=== PATIENT | female | born 1980 | race Caucasian/White ===

== ENCOUNTER 2017-01-17 09:50 | Emergency (ER) | payer MEDICARE, MEDICAID ==
--- NOTE | 2017-01-17 11:26 | UC ---
Momo Horvath Thomas, scribed for Laila Joshi MD on 01/17/17 at 1118 . Upper Extremity HPI - HPI Summary HPI Summary: The pt is a 36 y/o F presenting to Urgent Care c/o right shoulder pain that began a week ago but worsened two days ago. The pain is described as dull and stabbing. The pain is rated 7/10. The pain is aggravated by elevation of her right arm, palpation, and movement. It is alleviated by nothing. The patient has treated the pain with Naproxen [employer]. Pt additionally c/o numbness to her right arm yesterday when she was leaning on her right elbow. none since. No h/o injury - but states she does bowl and this increased pain. She is right- handed. Patients medication reviewed this visit. - History of Current Complaint Chief Complaint: UCUpperExtremity Stated Complaint: SHOULDER PAIN Time Seen by Provider: 01/17/17 11:11 Hx Obtained From: Patient Hx Last Menstrual Period: 2004 Onset/Duration: Lasting Weeks - 1, Still Present, Worse Since - two days Severity Initially: Mild Severity Currently: Moderate Pain Intensity: 7 Pain Scale Used: 0-10 Numeric Location Of Pain: Is Discrete @ - right shoulder Character: Dull Aggravating Factor(s): Movement, Other - Elevation, palpation Alleviating Factor(s): Nothing Associated Signs And Symptoms: Positive: Other - Numbness to right arm Related History: Dominant Hand Right - Allergies/Home Medications Allergies/Adverse Reactions: Allergies Allergy/AdvReac Type Severity Reaction Status Date / Time Acetaminophen [From Tylenol] Allergy See Comment Verified 01/17/17 09:56 Penicillins Allergy Hives Verified 01/17/17 09:56 Home Medications: Home Medications Naproxen Sodium [Naproxen Sodium 220 mg] 440 mg PO 01/17/17 [History] PMH/Surg Hx/FS Hx/Imm Hx Previously Healthy: Yes - NEGATIVE: DM, CAD - Surgical History Surgical History: Yes Surgery Procedure, Year, and Place: hysterectomy 2004 - Family History Known Family History: Positive: Cardiac Disease, Hypertension, Diabetes - Social History Occupation: Unemployed Lives: With Family Alcohol Use: Weekly Substance Use Type: None Smoking Status (MU): Heavy Every Day Tobacco Smoker Type: Cigarettes Amount Used/How Often: 1/2 PPD Have You Smoked in the Last Year: Yes Review of Systems Constitutional: Negative Skin: Negative Motor: Other - right shoulder pain Musculoskeletal: Other: - Right shoulder pain Neurological: Numbness - to right hand yesterday - resolved Is Patient Immunocompromised?: No All Other Systems Reviewed And Are Negative: Yes Physical Exam Triage Information Reviewed: Yes Appearance: Well-Appearing, No Pain Distress, Well-Nourished Vital Signs: Initial Vital Signs Temp 98.4 F 01/17/17 09:52 Pulse 81 01/17/17 09:52 Resp 18 01/17/17 09:52 BP 131/73 01/17/17 09:52 Pulse Ox 100 01/17/17 09:52 Vital Signs Reviewed: Yes Eyes: Negative: Discharge ENT: Positive: Hearing grossly normal Neck exam: Normal Neck: Positive: Supple, Nontender Respiratory Exam: Normal Respiratory: Positive: Chest non-tender, Lungs clear, Normal breath sounds, No respiratory distress, No accessory muscle use Cardiovascular Exam: Normal Cardiovascular: Positive: RRR, No Murmur, Pulses Normal - 2+ radial, 2+ ulnar Musculoskeletal: Positive: Other: - + TTP anterior rim of right shoulder + pain with extension shoulder > 90 and abduction right shoulder >90 + flex/ext elbow + pronate/supinate with mild right anterior shoulder pain No pain c/t/l/s Neurological Exam: Normal Neurological: Positive: Alert, Other: - + thumb up, a ok, finger spread, finger cross + gross sensation throughout Diagnostics - Radiology Shoulder XR Xray Interpretation: No Acute Changes - No evidence for fracture. Urgent Care physician has reviewed this report and agrees. Radiology Interpretation Completed By: Radiologist Re-Evaluation - Re-Evaluation First Eval Comment: reviewed imaging with pt. will place in sling - demonstrated shoulder and elbow exercises. ortho referral. naproxyn with food. ice. rest Upper Extremity Course/Dx - Course Course Of Treatment: The patient is a 36 year old female with right shoulder pain that is worssened with elevation of her right arm. Pain over rotator cuff. will check imaging for ?spur. likely sling, ortho f/u. continue naproxyn with food. Pt can not take APAP - Differential Dx/Diagnosis Provider Diagnoses: right shoulder pain Discharge - Discharge Plan Condition: Stable Disposition: HOME Patient Education Materials: Shoulder Pain (ED) Forms: *Work Release Referrals: Danny Jewell MD [Medical Doctor] - Jessi Zuñiga MD [Primary Care Provider] - Additional Instructions: - Wear sling for comfort. Take your arm out sling and slowly bend/straighten your elbow and make small circles at your shoulder as demonstrated in the ED - Okay to take Naproxyn - it is recommended you take this with food. - Apply ice (Wrapped in a towel) 20 minutes at a time 2-3 times a day - Contact the orthopedic provider to arrange a follow-up appointment. The documentation as recorded by the Momo zuñiga Thomas accurately reflects the service I personally performed and the decisions made by , Laila Joshi MD.
--- NOTE | 2017-01-17 11:46 | RAD ---
INDICATION: Right shoulder pain. TECHNIQUE: 4 views of the right shoulder were obtained. FINDINGS: The bones are in normal alignment. No fracture is seen. There is a tiny calcific density adjacent to the posterior aspect of the glenoid process of the scapula. No other calcifications are seen. Joint spaces appear maintained. IMPRESSION: NO EVIDENCE OF FRACTURE.
[2017-01-17 11:51] VITALS: BP 108/79
== END 2017-01-17 11:55 | disposition home or self-care (01) ==
LOC: UCEAST 09:50
DX: M25.511 Pain in right shoulder (principal); F17.210 Nicotine dependence, cigarettes, uncomplicated; Z88.0 Allergy status to penicillin; Z88.6 Allergy status to analgesic agent
CPT/HCPCS: 99211; G0463

== ENCOUNTER 2018-01-08 10:16 | Emergency (ER) | payer MEDICARE, MEDICAID ==
[2018-01-08 10:26] VITALS: BP 126/80
--- NOTE | 2018-01-08 10:39 | UC ---
Throat Pain/Nasal Sid HPI - HPI Summary HPI Summary: 37 yo female presents with sinus pain/pressure/congestion for the last 2 weeks. Over the last 3 days has been green nasal drainage and worsening post nasal drip. Sinus headache since yesterday. Has been taking dayquill with no relief. Denies fever, chills, SOB, chest pain. - History of Current Complaint Chief Complaint: UCRespiratory Stated Complaint: CONGESTED,FEVER Time Seen by Provider: 01/08/18 10:39 Hx Obtained From: Patient Hx Last Menstrual Period: 2004 Onset/Duration: Gradual Onset Severity: Moderate Pain Intensity: 7 Pain Scale Used: 0-10 Numeric - Allergies/Home Medications Allergies/Adverse Reactions: Allergies Allergy/AdvReac Type Severity Reaction Status Date / Time acetaminophen Allergy See Comment Verified 01/08/18 10:28 Penicillins Allergy Hives Verified 01/08/18 10:28 Home Medications: Home Medications Dm/Acetaminophen/Doxylamine [Vicks Nyquil Cold & Flu N 15-6.25-325 mg] 2 cap PO 01/08/18 [History] PMH/Surg Hx/FS Hx/Imm Hx - Additional Past Medical History Additional PMH: None - Surgical History Surgical History: Yes Surgery Procedure, Year, and Place: hysterectomy 2004 - Family History Known Family History: Positive: Cardiac Disease, Hypertension, Diabetes - Social History Occupation: Employed Full-time Lives: With Family Alcohol Use: Weekly Substance Use Type: None Smoking Status (MU): Light Every Day Tobacco Smoker Type: Cigarettes Amount Used/How Often: 1/2 PPD Have You Smoked in the Last Year: Yes Review of Systems Constitutional: Negative Skin: Negative Eyes: Negative ENT: Nasal Discharge, Sinus Congestion, Sinus Pain/Tenderness Respiratory: Negative Cardiovascular: Negative Gastrointestinal: Negative Neurovascular: Negative Neurological: Negative Psychological: Negative All Other Systems Reviewed And Are Negative: Yes Physical Exam - Summary Physical Exam Summary: GENERAL: NAD. WDWN. No pain distress. SKIN: No rashes, sores, lesions, or open wounds. HEENT: Head: AT/NC Eyes: EOM intact. Conjunctiva clear without inflammation or discharge. Ears: Hearing grossly normal. TMs intact, no bulging, erythema, or edema. Nose: Nasal mucosa mildly swollen and erythematous with green/ yellow discharge. TTP maxillary and frontal sinus. Positive post nasal drip Throat: Posterior oropharynx without exudates, erythema, or tonsillar enlargement. Uvula midline. NECK: Supple. Nontender. No lymphadenopathy. CHEST: CTAB. No r/r/w. No accessory muscle use. Breathing comfortably and in no distress. CV: RRR. Without m/r/g. Pulses intact. NEURO: Alert. PSYCH: Age appropriate behavior. Triage Information Reviewed: Yes Vital Signs: Initial Vital Signs Temp 98.5 F 01/08/18 10:23 Pulse 89 01/08/18 10:23 Resp 18 01/08/18 10:23 BP 126/80 01/08/18 10:23 Pulse Ox 100 01/08/18 10:23 Vital Signs Reviewed: Yes Throat Pain/Nasal Course/Dx - Course Course Of Treatment: Sinusitis - Differential Dx/Diagnosis Provider Diagnoses: Sinusitis Discharge - Sign-Out/Discharge Documenting (check all that apply): Patient Departure All imaging exams completed and their final reports reviewed: No Studies - Discharge Plan Condition: Stable Disposition: HOME Prescriptions: Azithromycin TAB* [Zithromax TAB (Z-GUSTAVO) 250 mg #6 tabs] 2 tab PO .TODAY, THEN 1 DAILY #1 gustavo Patient Education Materials: Sinusitis (ED) Referrals: Jessi Zuñiga MD [Primary Care Provider] - Additional Instructions: If you develop a fever, shortness of breath, chest pain, new or worsening symptoms - please call your PCP or go to the ED. - Billing Disposition and Condition Condition: STABLE Disposition: Home
== END 2018-01-08 11:00 | disposition home or self-care (01) ==
LOC: UCEAST 10:16
DX: J32.9 Chronic sinusitis, unspecified (principal); Z88.6 Allergy status to analgesic agent; Z88.0 Allergy status to penicillin; F17.210 Nicotine dependence, cigarettes, uncomplicated
CPT/HCPCS: 99212; G0463

== ENCOUNTER 2019-01-07 18:15 | Emergency (ER) | payer MEDICARE, MEDICAID ==
[2019-01-07 18:28] VITALS: BP 147/93
--- NOTE | 2019-01-07 19:00 | UC ---
Respiratory Complaint HPI - HPI Summary HPI Summary: 38-year-old female presents for complaints of harsh nonproductive cough. States cough started yesterday. Associated with nasal congestion, clear nasal discharge, sore throat, shortness of breath, and wheezing. No history of asthma however patient is a smoker and smokes approximately 15 cigarettes a day. Denies fever, chills, ear pain, dysphagia, chest pain, palpitations, abdominal pain, nausea, vomiting, or diarrhea. - History of Current Complaint Chief Complaint: UCRespiratory Stated Complaint: COUGH Time Seen by Provider: 01/07/19 18:33 Hx Obtained From: Patient Hx Last Menstrual Period: 2004 Pain Intensity: 3 - Allergies/Home Medications Allergies/Adverse Reactions: Allergies Allergy/AdvReac Type Severity Reaction Status Date / Time acetaminophen Allergy See Comment Verified 01/07/19 18:24 Penicillins Allergy Hives Verified 01/07/19 18:24 Home Medications: Home Medications Aspirin/Caffeine [Juan Back & Body Pain Ex] 1 tab PO Q12H PRN 01/07/19 [ History Confirmed 01/07/19] PMH/Surg Hx/FS Hx/Imm Hx Previously Healthy: Yes - Denies significant PMH - Surgical History Surgical History: Yes Surgery Procedure, Year, and Place: hysterectomy 2004 - Family History Known Family History: Positive: Cardiac Disease, Hypertension, Diabetes - Social History Occupation: Unemployed Lives: Alone Alcohol Use: Occasionally Substance Use Type: Marijuana Substance Use Comment - Amount & Last Used: rare Smoking Status (MU): Heavy Every Day Tobacco Smoker Type: Cigarettes Amount Used/How Often: 15 cigs/day Have You Smoked in the Last Year: Yes Review of Systems All Other Systems Reviewed And Are Negative: Yes Constitutional: Positive: Fatigue. Negative: Fever, Chills Skin: Negative: Rash Eyes: Negative: Drainage, Eye Redness ENT: Positive: Sore Throat, Nasal Discharge, Sinus Congestion. Negative: Ear Ache, Sinus Pain/Tenderness Respiratory: Positive: Shortness Of Breath, Cough, Other - Wheezing Cardiovascular: Negative: Palpitations, Chest Pain Gastrointestinal: Negative: Abdominal Pain, Vomiting, Diarrhea, Nausea Genitourinary: Positive: Negative Musculoskeletal: Positive: Negative Neurological: Positive: Negative Is Patient Immunocompromised?: No Physical Exam - Summary Physical Exam Summary: GENERAL APPEARANCE: Well developed, well nourished, alert and cooperative, and appears to be in no acute distress. EYES: Conjunctiva clear. No drainage. EARS: External auditory canals and tympanic membranes clear, hearing grossly intact. NOSE: Moderate nasal congestion. Clear nasal discharge. THROAT: Pharyngeal erythema with post-nasal drip. No tonsilar inflammation, swelling, exudate, or lesions. Uvula midline. NECK: Neck supple, non-tender without lymphadenopathy. CARDIAC: Normal S1 and S2. No S3, S4 or murmurs. Rhythm is regular. There is no peripheral edema, cyanosis or pallor. Extremities are warm and well perfused. Capillary refill is less than 2 seconds. Peripheral pulses intact. LUNGS: Diminished breath sounds bilaterally. Diffuse bilateral wheezes. Non- productive bronchospastic cough. ABDOMEN: Positive bowel sounds. Soft, nondistended, nontender. No guarding or rebound. No masses or hepatosplenomegally. MUSKULOSKELETAL: ROM intact to all extremities. No joint erythema or tenderness. Normal muscular development. Normal gait. SKIN: Skin normal color, texture and turgor with no lesions or eruptions. Triage Information Reviewed: Yes Vital Signs: Initial Vital Signs Temp 98.6 F 01/07/19 18:25 Pulse 87 01/07/19 18:25 Resp 18 01/07/19 18:25 BP 147/93 01/07/19 18:25 Pulse Ox 100 01/07/19 18:25 Vital Signs Reviewed: Yes Re-Evaluation - Re-Evaluation First Eval Re-Evaluation Time: 19:25 Change: Unchanged Comment: Post nebulizer treatment the patient states that she does not feel that there was much improvement. On auscultation she did have improved air exchange however continued to have diffuse bilateral wheezes. Patient was offered a second treatment for better control of the wheezing but declines at this time stating she would prefer just to go home. I will give her prednisone 60 mg PO here in the clinic and send her home with an albuterol inhaler with spacer to use 2 puffs every 4-6 hours as needed for shortness of breath and wheezing. Respiratory Course/Dx - Course Course Of Treatment: 38-year-old female presents for complaints of harsh nonproductive cough. States cough started yesterday. Associated with nasal congestion, clear nasal discharge, sore throat, shortness of breath, and wheezing. No history of asthma however patient is a smoker and smokes approximately 15 cigarettes a day. Denies fever, chills, ear pain, dysphagia, chest pain, palpitations, abdominal pain, nausea, vomiting, or diarrhea. Afebrile. Hypertensive otherwise vital signs stable. Patient had moderate nasal congestion, clear nasal discharge, pharyngeal erythema without tonsillar swelling or exudate, no cervical lymphadenopathy, diminished bilateral breath sounds, diffuse bilateral wheezes, nonproductive bronchospastic cough, and otherwise unremarkable exam. She was given a DuoNeb in the clinic. Post nebulizer treatment the patient reported little improvement in symptoms however upon auscultation she did have improved air exchange although the diffuse wheezing continued. Patient was offered additional treatments to help with better control of the wheezing however declines stating that she would prefer to go home. Gave her a dose 60 mg of prednisone in the clinic and dispensed an albuterol inhaler with spacer for her to use as needed for shortness of breath and wheezing. I discussed with the patient that her symptoms were consistent with a viral upper respiratory infection with reactive airway disease. Recommending symptomatic treatment for an upper respiratory infection. We'll have her continue prednisone 50 mg daily for the next 4 days starting tomorrow to help with the wheezing. She is to follow-up with her primary care provider in 3 days for recheck of symptoms. Anticipatory guidance and warning symptoms were reviewed with the patient. Verbalizes understanding and agrees with plan of care. - Differential Dx/Diagnosis Differential Diagnosis/HQI/PQRI: Bronchitis, Influenza, Lower Resp Infection, Sinusitis Provider Diagnosis: Viral URI with cough, Reactive airway disease Discharge ED - Sign-Out/Discharge Documenting (check all that apply): Patient Departure All imaging exams completed and their final reports reviewed: No Studies - Discharge Plan Condition: Stable Disposition: HOME Prescriptions: predniSONE TAB* [Deltasone TAB*] 50 mg PO DAILY #4 tab Patient Education Materials: Upper Respiratory Infection (ED), Wheezing (ED) Referrals: Jessi Zuñiga MD [Primary Care Provider] - Additional Instructions: Your history and exam are consistent with a viral upper respiratory infection with reactive airway disease (wheezing). Viral infections do not respond to antibiotics and are limited to the treatment of symptoms. Viral infections typically run their course in 7-10 days. Use the albuterol inhaler with spacer provided to you in the clinic. Take 2 puffs every 4-6 hours as needed for shortness of breath or wheezing. You were given a dose of prednisone 60 mg in the clinic to help with the inflammation in her airways causing the wheezing. Continue taking prednisone 50 mg once daily for the next 4 days starting tomorrow. Use [id number] decongestant such as Sudafed to help with the nasal congestion. Take over the counter acetaminophen (Tylenol) or ibuprofen (Advil, Motrin) according to directions as needed for pain or fever. Use salt water gargles several times a day if you have a sore throat. You may also use Chloraseptic spray or Cepacol lonzenges according to directions which contain a numbing medication and can provide some temporary relief from your sore throat. Follow up with your primary care provider in 3 days for a recheck of your symptoms. Seek immediate medical attention in the emergency room if you have fever greater than 100.5 F despite taking acetaminophen or ibuprofen, have chest pain , difficulty breathing, are unable to swallow, or have any worsening of symptoms. - Billing Disposition and Condition Condition: STABLE Disposition: Home - Attestation Statements Provider Attestation: I was available for consult. This patient was seen by the MELIDA. The patient was not presented to, seen by, or examined by me. -Kristi
[2019-01-07] MEDS ORDERED: Albuterol/Ipratropium NEB.SOL* Albuterol 2.5 MG/Ipratropium 0.5 MG 3 ML INH ONE (19:05)
[2019-01-07] MEDS ORDERED: predniSONE TAB* 20 MG PO ONE (19:33)
[2019-01-07] MEDS ORDERED: Albuterol HFA INHALER* 8 gm MDI INH ONE (19:33)
== END 2019-01-07 19:55 | disposition home or self-care (01) ==
LOC: UCEAST 18:15
DX: J06.9 Acute upper respiratory infection, unspecified (principal); R05 Cough; J45.909 Unspecified asthma, uncomplicated; I10 Essential (primary) hypertension; F17.210 Nicotine dependence, cigarettes, uncomplicated; Z88.6 Allergy status to analgesic agent; Z88.0 Allergy status to penicillin
CPT/HCPCS: 99212; A9270-GY; G0463; J7512